=== PATIENT | male | born 1990 | race Caucasian/White ===

== ENCOUNTER → 2019-08-25 | Outpatient (CLI) | payer OTHER | LOC: M.ULTRA 13:00 | PROVIDERS: ATTEND Registered Nurse Diabetes Educator | DX: D17.1 Benign lipomatous neoplasm of skin and subcutaneous tissue of trunk (principal); R22.31 Localized swelling, mass and lump, right upper limb ==

== ENCOUNTER → 2019-12-07 | Outpatient (CLI) | payer OTHER | LOC: M.MRI 14:16 | PROVIDERS: ATTEND Registered Nurse Diabetes Educator | DX: R22.31 Localized swelling, mass and lump, right upper limb (principal); M79.89 Other specified soft tissue disorders ==